=== PATIENT | male | born 1980 | race Caucasian/White ===

== ENCOUNTER 2020-07-14 12:22 | Emergency (ER) | payer OTHER ==
[~2020-07-14] VITALS: Ht 190.5 cm; Wt 127.0 kg
[2020-07-14 15:46] LABS: HEMOGLOBIN 15.4 gm/dl (14.0-17.5); RED BLOOD COUNT 5.09 M/UL (4.20-5.50); WHITE BLOOD COUNT 11.7 K/UL (4.5-11.0)
[2020-07-14 16:00] LABS: BUN/CREATININE RATIO 17 (0-10)
[2020-07-14] MEDS ORDERED: ENDOCET 5-3251 EACH PO ×2 (17:29→17:59)
[2020-07-14] MEDS ORDERED: BACTRIM 400-801 EACH PO ×2 (17:29→17:59)
[2020-07-14] MEDS ORDERED: OMNICEF 300 MG300 MG PO ×2 (17:29→17:59)
[2020-07-14] MEDS ORDERED: METFORMIN HCL500 MG PO ×2 (17:37→17:59)
== END 2020-07-14 19:07 | disposition home or self-care (01) ==
LOC: ER1 12:22
PROVIDERS: Emergency Medicine
DX: N49.2 Inflammatory disorders of scrotum (principal); E11.9 Type 2 diabetes mellitus without complications; F17.210 Nicotine dependence, cigarettes, uncomplicated
CPT/HCPCS: 54700; 80053; 81001; 83690; 85025; 87070; 87205; 99282; J1170; J1885; J2405; J2543; J3370; J7030; Q9967